=== PATIENT | female | born 1995 | race Caucasian/White ===

== ENCOUNTER 2022-04-13 09:05 | Outpatient (CLI) | payer OTHER, SELFPAY ==
[2022-04-13 13:33] LABS: Cholesterol* 191 mg/dL (90-199); HDL Cholesterol* 64 mg/dL (>=50); LDL Cholesterol Calculated 88 mg/dL (<100); Triglycerides* 195 mg/dL (40-149)
[2022-04-13 15:26] LABS: Chlamydia DNA Amplified* NOT DETECTED (No Detected); GC DNA Amplified* NOT DETECTED (No Detected)
[2022-04-13 23:59] LABS: Glucose* 117 mg/dL (60-115)
== END 2022-04-13 09:06 | disposition home or self-care (01) ==
PROVIDERS: Visit Provider Obstetrics & Gynecology
DX: Z01.419 Encounter for gynecological examination (general) (routine) without abnormal findings (principal); R63.5 Abnormal weight gain; F41.9 Anxiety disorder, unspecified; N94.6 Dysmenorrhea, unspecified; Z13.6 Encounter for screening for cardiovascular disorders; Z13.1 Encounter for screening for diabetes mellitus
CPT/HCPCS: 80061; 82947; 84443; 87070; 87491; 87591